=== PATIENT | male | born 1940 | race Caucasian/White ===

== ENCOUNTER 2020-02-09 14:00 | Emergency (ER) | payer OTHER ==
--- NOTE | 2020-02-09 14:47 | ED ---
Complex/Multi-Sys Presentation - HPI Summary HPI Summary: Patient is an 79 year-old male who has history of type II diabetes presenting to [facility] with a chief complaint of increased fatigue with excessive sleeping since yesterday. Patient reports that he called his PCP Dr. Colunga because he has been feeling sleepy for 2-3 weeks, but he was referred here. He states he is just feeling tired, but his family is concerned that his glucose levels are out of normal limits after traveling from [facility] yesterday since being there since November for business travel, although he lives in [place]. Family reports that the patient does not have any known COVID-19 exposure. He denies any fevers, chills, cough, shortness of breath, erythema of eyes, sore throat, rhinorrhea, chest pain/tightness/heaviness/pressure, abdominal pain, nika red blood in stool, melena, diarrhea, nausea/vomiting, myalgia, or rash. He endorses decreased appetite. He notes occasional dizziness. Patient states he always has sinus congestion. No recent falls. Patient sleeps on one pillow at night; he denies recent weight gain or edema in the lower extremities. He reports urinary urgency with history of BPH, but he denies any dysuria or hematuria. He is not experiencing any pain. Patients glucose level in the room upon arrival is 145, per nurse Matts note. Past medical history additionally includes hypertension, hypercholesterolemia, CAD, 2 cardiac stents, bilateral cataracts. Former smoker , no EtOH, no substance use. Medications reviewed. Allergies noted. - History Of Current Complaint Chief Complaint: EDDiabeticProb Time Seen by Provider: 02/09/20 14:20 Hx Obtained From: Patient Onset/Duration: Lasting Weeks, Still Present Timing: Weeks Severity Currently: Mild Severity Initially: Mild Aggravating Factor(s): nothing Alleviating Factor(s): nothing Associated Signs And Symptoms: Positive: Dizziness - occasional, Other - urinary urgency, decreased appetite; Negative: recent weight gain, chills, erythema of eyes, sore throat, rhinorrhea, nika red blood in stool, diarrhea, myalgia, rash. Negative: SOB, Cough, Chest Pain, Edema, Nausea, Vomiting, Diarrhea, Abdominal Pain, Dysuria, Melena, Fever Related History: Other - travel from [facility] yesterday - Allergies/Home Medications Allergies/Adverse Reactions: Allergies Allergy/AdvReac Type Severity Reaction Status Date / Time No Known Allergies Allergy Verified 02/09/20 14:07 Home Medications: Home Medications Aspirin EC TAB* [Ecotrin EC Low Dose 81 MG*] 81 mg PO DAILY 09/04/16 [History Confirmed 02/09/20] Enalapril(NF) [Enalapril (NF)] 10 mg PO DAILY 09/04/16 [History Confirmed ] Finasteride [Proscar] 5 mg PO DAILY 09/04/16 [History Confirmed 02/09/20] Simvastatin TAB(NF) [Zocor(NF)] 20 mg PO BEDTIME 09/04/16 [History Confirmed ] glipiZIDE TAB.XL* [Glucotrol XL*] 5 mg PO BID 09/04/16 [History Confirmed ] Fluticasone NASAL SPRAY 50MCG* [Flonase NASAL SPRAY 50MCG*] 1 - 2 spray BOTH NARES DAILY 02/09/20 [History Confirmed 02/09/20] Nystatin CREAM* 1 applic TOPICAL .2-3X/DAY 02/09/20 [History Confirmed 02/09/20] Pioglitazone TAB* [Actos TAB*] 15 mg PO DAILY 02/09/20 [History Confirmed ] Terazosin CAP* [Hytrin CAP*] 10 mg PO DAILY 02/09/20 [History Confirmed 02/09/20 ] PMH/Surg Hx/FS Hx/Imm Hx Endocrine/Hematology History: Reports: Hx Diabetes - TYPE 2 Cardiovascular History: Reports: Hx Coronary Artery Disease - 2 STENTS X2006, Hx Hypertension - ON MEDS PT. STATES CONTROLLED Respiratory History: Reports: Hx Sleep Apnea - STATES BEING DX DOESN'T USE CPAP , Other Respiratory Problems/Disorders - HEAVY SNORER History: Reports: Hx Benign Prostatic Hyperplasia Sensory History: Reports: Hx Cataracts - BILAT, Hx Contacts or Glasses - READING , Hx Hearing Aid - LEFT EAR HEARING AID NO HEARING IN RIGHT EAR Opthamlomology History: Reports: Hx Cataracts - BILAT, Hx Contacts or Glasses - READING - Surgical History Surgical History: Yes Surgery Procedure, Year, and Place: 07/19 BILAT CATARACT REMOVAL. RIGHT AND LEFT HERNIA REPAIR Hx Anesthesia Reactions: No Infectious Disease History: No Infectious Disease History: Denies: Traveled Outside the [place] in Last 30 Days - Family History Known Family History: Positive: Hypertension - Social History Alcohol Use: None Hx Substance Use: No Substance Use Type: Reports: None Hx Tobacco Use: Yes Smoking Status (MU): Former Smoker Review of Systems Positive: Fatigue. Negative: Fever, Chills, Other - recent weight gain Negative: Erythema Negative: Sore Throat, Nasal Discharge Negative: Chest Pain - or tightness/heaviness/pressure Positive: Other - decreased appetite; Negative: blood in stool, melena. Negative: Abdominal Pain, Vomiting, Diarrhea, Nausea Positive: urgency - secondary to BPH. Negative: dysuria, hematuria Negative: Myalgia, Edema Negative: Rash Neurological/Mental Status: Other - occasional dizziness All Other Systems Reviewed And Are Negative: Yes Physical Exam - Summary Physical Exam Summary: Constitutional: Well-developed, Well-nourished, Alert. (-) Distressed Skin: Warm, Dry HENT: Normocephalic; Atraumatic Eyes: Conjunctiva normal Neck: Musculoskeletal ROM normal neck. (-) JVD, (-) Stridor, (-) Tracheal deviation Cardio: Rhythm regular, rate normal, Heart sounds normal; Intact distal pulses; The pedal pulses are 2+ and symmetric. Radial pulses are 2+ and symmetric. (-) Murmur Pulmonary/Chest wall: Effort normal. Very fine bibasilar crackles, (-) Respiratory distress, (-) Wheezes, (-) Rales Abd: Soft, (-) tenderness, (-) Distension, (-) Guarding, (-) Rebound Musculoskeletal: (-) Edema Lymph: (-) Cervical adenopathy Neuro: Alert, Oriented x3 Psych: Mood and affect Normal Triage Information Reviewed: Yes Vital Signs On Initial Exam: Initial Vitals Temp Pulse Resp BP Pulse Ox 97.9 F 93 20 113/80 92 02/09/20 14:02 02/09/20 14:02 02/09/20 14:02 02/09/20 14:02 02/09/20 14:02 Vital Signs Reviewed: Yes Procedures - Sedation Patient Received Moderate/Deep Sedation with Procedure: No Diagnostics - Vital Signs Vital Signs Temp Pulse Resp BP Pulse Ox 02/09/20 14:02 97.9 F 93 20 113/80 92 - Laboratory Lab Results: Lab Results 02/09/20 Range/Units 14:14 POC Glucose (mg/dL) 145 H (70-100) mg/dL Result Diagrams: 02/09/20 15:45 02/09/20 15:45 Lab Statement: Any lab studies that have been ordered have been reviewed, and results considered in the medical decision making process. - Radiology CXR Radiology Interpretation Completed By: Radiologist Summary of Radiographic Findings: Impression: Limited exam due to obesity without gross evidence for pneumonia. No evidence for acute intrathoracic disease. Dr. Mistry has reviewed this report. - EKG 1600 Cardiac Rate: NL - 87 BPM EKG Rhythm: Sinus Rhythm Summary of EKG Findings: An EKG at 1600 reveals sinus rhythm at 87 BPM. RBBB. No STEMI. Dr. Mistry has reviewed and interpreted this EKG. Re-Evaluation - Re-Evaluation First Eval Re-Evaluation Time: 17:40 Comment: Explained results. Agrees to dispo plan. Complex Multi-Symp Course/Dx Course Of Treatment: 79 year-old male with history of diabetes/BPH/CAD presenting with fatigue over the last few weeks and recent travel from [facility] yesterday after being there since November. No known COVID-19 exposure, per family. Patient denies fevers, shortness of breath, cough, rhinorrhea, sore throat, chest discomfort, GI/ symptomsm myalgias. Endorses decreased appetite , occasional dizziness. States congestion at baseline. Urinary urgency secondary to BPH. Sleeps on one pillow, no recent weight gain. Former smoker. Family concerned for abnormal glucose levels but sugar in the ED is 145 upon arrival. Very fine bibasilar crackles present on physical exam. Patient placed on droplet/contact precautions as PUI. Blood work with abnormalities of platelets 136, BUN 29, creatinine 1.19, glucose 123, CRP 26.67. Negative troponin. Cultures sent. Urinalysis shows trace ketones but otherwise within normal limits. Influenza A and B are negative. COVID-19 swab sent, pending results. EKG at 1600 reveals sinus rhythm at 87 BPM, RBBB, no STEMI. CXR is limited due to obesity, although there is no gross evidence for pneumonia or acute intrathoracic disease. Viral process is possible. He reports no shortness of breath, and his O2 saturations are normal. Supportive treatment with Tylenol and hydration. All results discussed. Patient is safe for discharge to home with PCP follow up within two days. Patient understands and agrees with plan. - Diagnoses Provider Diagnoses: Fatigue Discharge ED - Sign-Out/Discharge Documenting (check all that apply): Patient Departure - Patient will be discharged home. - Discharge Plan Condition: Stable Disposition: HOME Patient Education Materials: Fatigue (ED) Referrals: Norris Colunga MD [Primary Care Provider] - 2 Days Additional Instructions: Please isolate yourself at home until the Health Department contacts you and tells you otherwise depending on your test results. Follow up with your primary care provider in 48 hours concerning todays visit. Return to the emergency department for any new or worsening symptoms. - Attestation Statements Document Initiated by Scribe: Yes Documenting Scribe: Crystal Soto Provider For Whom Scribe is Documenting (Include Credential): Rasheed Mistry MD Scribe Attestation: Crystal Long, scribed for Rasheed Mistry MD on 02/09/20 at 1745. Status of Scribe Document: Ready
[2020-02-09 16:09] LABS: ABS Monocytes 0.7 10^3/ul (0-0.8); Eosinophil % 0.2 %; Hematocrit 41 % (42-52); Lymphocyte % 17.7 %; Mean Corpuscular HGB Conc 34 g/dL (31-36); Mean Corpuscular Hemoglobin 29 pg (27-31); Mean Corpuscular Volume 85 fL (80-94); Mean Platelet Volume 9.7 fL (7.4-10.4); Platelet Count 136 10^3/uL (150-450); Red Blood Count 4.83 10^6 /uL (4.18-5.48); Red Cell Distribution Width 15 % (10-15); White Blood Count 5.6 10^3/uL (3.5-10.8)
[2020-02-09 16:20] LABS: Activated Partial Thrombo Time 28.1 seconds (26.0-38.0); INR 1.04 (0.82-1.09)
[2020-02-09 16:24] LABS: Influenza A Molecular Negative (Negative); Influenza B Molecular Negative (Negative)
[2020-02-09 16:32] LABS: Albumin 3.8 g/dL (3.2-5.2); Albumin/Globulin Ratio 1.2 (1-3); BUN/Creatinine Ratio 24.4 (8-20); C Reactive Protein 26.67 mg/L (<8.01); Calcium 8.8 mg/dL (8.6-10.3); EGFR Non-African American 58.7 (>60); Globulin 3.2 g/dL (2-4); Total Bilirubin 0.6 mg/dL (0.2-1.0)
[2020-02-09 16:35] LABS: Urine Appearance Cloudy; Urine Bilirubin Negative (Negative); Urine Blood Negative (Negative); Urine Color Yellow; Urine Glucose Negative (Negative); Urine Ketones Trace (Negative); Urine Nitrite Negative (Negative); Urine Protein Negative (Negative); Urine Specific Gravity 1.015 (1.010-1.030); Urine Urobilinogen Negative (Negative)
[2020-02-09 16:43] LABS: Troponin I 0.01 ng/mL (<0.03)
[2020-02-09 17:53] VITALS: BP 122/73
== END 2020-02-09 17:52 | disposition home or self-care (01) ==
LOC: ED 14:00
DX: R53.83 Other fatigue (principal); B97.29 Other coronavirus as the cause of diseases classified elsewhere; E11.9 Type 2 diabetes mellitus without complications; I25.10 Atherosclerotic heart disease of native coronary artery without angina pectoris; Z95.1 Presence of aortocoronary bypass graft; I10 Essential (primary) hypertension; E78.00 Pure hypercholesterolemia, unspecified; N40.0 Benign prostatic hyperplasia without lower urinary tract symptoms; Z87.891 Personal history of nicotine dependence; Z79.82 Long term (current) use of aspirin; R94.31 Abnormal electrocardiogram [ECG] [EKG]
CPT/HCPCS: 36415; 71045; 80053; 81003; 83605; 83880; 84484; 85025; 85610; 85730; 86140; 87040; 87635; 93005; 99283

== ENCOUNTER 2024-06-19 16:57 | Observation (INO) ==
[2024-06-19 19:13] LABS: ABS Eosinophils 0.2 10^3/uL (0.0-0.5); ABS Lymphocytes 1.5 10^3/uL (1.0-4.8); Eosinophil % 2.2 %; Hematocrit 37.9 % (38-53); Hemoglobin 12.3 g/dL (13.2-16.3); Lymphocyte % 15.5 %; Mean Corpuscular Hemoglobin 27.7 pg (27-33); Mean Corpuscular Hgb Conc 32.4 g/dL (31-36); Mean Corpuscular Volume 85.5 fL (80-97); Mean Platelet Volume 8.7 fL (7.5-11.2); Platelet Count 255 10^3/uL (150-450); Red Blood Count 4.43 10^6/uL (4.06-5.63); Red Cell Distribution Width 15.5 % (12-17); White Blood Count 9.8 10^3/uL (3.6-10.2)
[2024-06-19 19:48] LABS: Albumin 4.1 g/dL (3.2-5.2); Albumin/Globulin Ratio 1.3 (1-3); C Reactive Protein 33.62 mg/L (<8.01); Calcium 9.3 mg/dL (8.6-10.3); Creatinine, Serum 1.07 mg/dL (0.67-1.17); Globulin 3.2 g/dL (2-4); Potassium 4.6 mmol/L (3.5-5.0); Total Bilirubin 0.5 mg/dL (0.2-1.0); Total Protein 7.3 g/dL (6.4-8.9)
[2024-06-19 20:35] LABS: Erythrocyte Sed Rate 63 mm/Hr (0-19)
[2024-06-19] MEDS: Piperacillin/Tazobac 3.375 BAG 3.375 GM/100 ML BAG IV ONE (21:49)
[2024-06-19] MEDS: Vancomycin 1,000 MG in NS 0.9% 250 ml 250 ML IVPB ONE (23:08)
[2024-06-20] MEDS: cefTRIAXone 1 gm/50 mL D5W 1 GM/50 ML BAG IV SCH (02:55)
[2024-06-20] MEDS ORDERED: Vancomycin per Pharmacy 1 EA NOTE FOLLOW UP SCH (03:00)
[2024-06-20] MEDS ORDERED: Dextrose 50% Syringe 50 ml 25 GM/50 ML SYRINGE IV PUSH PRN (05:42)
[2024-06-20] MEDS ORDERED: Vancomycin 1,000 MG in NS 0.9% 250 ml 250 ML IVPB ONE (06:00)
[2024-06-20] MEDS: Enoxaparin 60 MG/0.6 ML SYR SUBCUT SCH (09:12)
[2024-06-20] MEDS: Aspirin EC 81 mg TAB.EC (enteric coated) PO SCH (09:12)
[2024-06-20] MEDS: Vancomycin 750 MG in NS 0.9% 250 ML IVPB SCH (09:23)
[2024-06-20] MEDS: Furosemide 20 mg/2 ml IV VIAL IV SLOW PU ONE (13:50)
[2024-06-20] MEDS ORDERED: Sulfur Hexaflouride MICROSPHR 25 MG VIAL ONE ×2 (15:27)
[2024-06-20] MEDS: Sulfur Hexaflouride MICROSPHR 25 MG VIAL IV ONE (15:41)
[2024-06-21 06:11] LABS: ABS Eosinophils 0.2 10^3/uL (0.0-0.5); ABS Lymphocytes 1.3 10^3/uL (1.0-4.8); ABS Monocytes 1.2 10^3/uL (0.0-1.1); ABS Neutrophils 6.9 10^3/uL (1.5-7.6); Eosinophil % 2.6 %; Hematocrit 33.1 % (38-53); Hemoglobin 11.3 g/dL (13.2-16.3); Lymphocyte % 13.7 %; Mean Corpuscular Hemoglobin 28.7 pg (27-33); Mean Corpuscular Hgb Conc 34.2 g/dL (31-36); Mean Platelet Volume 8.5 fL (7.5-11.2); Platelet Count 223 10^3/uL (150-450); Red Blood Count 3.95 10^6/uL (4.06-5.63); Red Cell Distribution Width 15.5 % (12-17); White Blood Count 9.7 10^3/uL (3.6-10.2)
[2024-06-21 06:41] LABS: Albumin 3.2 g/dL (3.2-5.2); Albumin/Globulin Ratio 1.3 (1-3); C Reactive Protein 130.91 mg/L (<8.01); Calcium 8.5 mg/dL (8.6-10.3); Creatinine, Serum 1.05 mg/dL (0.67-1.17); Globulin 2.4 g/dL (2-4); Magnesium 2.1 mg/dL (1.9-2.7); Total Bilirubin 0.5 mg/dL (0.2-1.0); Total Protein 5.6 g/dL (6.4-8.9); eGFR CKD-EPI 69.6 (>60)
[2024-06-21] MEDS ORDERED: Vancomycin Trough Check NOTE FOLLOW UP ONE (08:30)
[2024-06-21 13:59] VITALS: BP 107/51
== END 2024-06-21 14:35 | disposition home or self-care (01) ==
LOC: EDHOLD 16:57 → ED 16:57 → SUATTDRO 06-20 01:00 → MEDTELE 06-20 17:32
PROVIDERS: ADMIT Internal Medicine; ATTEND Student in an Organized Health Care Education/Training Program

== ENCOUNTER 2024-07-07 06:37 | Observation (INO) ==
[2024-07-07 07:46] LABS: ABS Basophils 0.1 10^3/uL (0.0-0.1); ABS Eosinophils 0.1 10^3/uL (0.0-0.5); ABS Lymphocytes 0.8 10^3/uL (1.0-4.8); ABS Monocytes 0.6 10^3/uL (0.0-1.1); ABS Neutrophils 8.1 10^3/uL (1.5-7.6); Eosinophil % 1.3 %; Hematocrit 24.9 % (38-53); Hemoglobin 8.4 g/dL (13.2-16.3); Lymphocyte % 8.5 %; Mean Corpuscular Hemoglobin 28.8 pg (27-33); Mean Corpuscular Hgb Conc 33.9 g/dL (31-36); Mean Corpuscular Volume 85.1 fL (80-97); Mean Platelet Volume 9.4 fL (7.5-11.2); Platelet Count 252 10^3/uL (150-450); Red Blood Count 2.92 10^6/uL (4.06-5.63); Red Cell Distribution Width 15.6 % (12-17); White Blood Count 9.7 10^3/uL (3.6-10.2)
[2024-07-07 08:34] LABS: Blood Urea Nitrogen > 120 mg/dL (6-24)
[2024-07-07 08:35] LABS: ALT 11 U/L (7-52); Albumin 3.9 g/dL (3.2-5.2); Albumin/Globulin Ratio 1.2 (1-3); Alkaline Phosphatase 51 U/L (35-149); Anion Gap 10 mmol/L (2-16); CO2 Carbon Dioxide 26 mmol/L (22-32); Calcium 8.5 mg/dL (8.6-10.3); Chloride 98 mmol/L (101-111); Creatinine, Serum 2.04 mg/dL (0.67-1.17); Globulin 3.3 g/dL (2-4); Glucose 149 mg/dL (70-100); Sodium 134 mmol/L (135-145); Total Bilirubin 0.3 mg/dL (0.2-1.0); Total Protein 7.2 g/dL (6.4-8.9); eGFR CKD-EPI 31.4 (>60)
[2024-07-07 09:24] LABS: Urine Appearance Clear; Urine Bilirubin Negative (Negative); Urine Blood Negative (Negative); Urine Color Light-Yellow; Urine Glucose Negative (Negative); Urine Ketones Negative (Negative); Urine Nitrite Negative (Negative); Urine Protein Negative (Negative); Urine Specific Gravity 1.014 (1.002-1.030); Urine Urobilinogen Negative (Negative)
[2024-07-07] MEDS: Pantoprazole VIAL 40 MG VIAL IV ONE (10:26)
[2024-07-07 10:35] LABS: Potassium Redraw 4.9 mmol/L (3.5-5.0)
[2024-07-07] MEDS ORDERED: Pantoprazole VIAL 40 MG VIAL IV SCH (12:00)
[2024-07-07] MEDS ORDERED: Dextrose 50% Syringe 50 ml 25 GM/50 ML SYRINGE IV PUSH PRN (12:38)
[2024-07-07 14:30] LABS: Hematocrit 22.3 % (38-53); Hemoglobin 7.6 g/dL (13.2-16.3)
[2024-07-07] MEDS: Pantoprazole VIAL 40 MG VIAL IV SCH (22:13)
[2024-07-08 00:17] LABS: Hematocrit 29.4 % (38-53); Hemoglobin 9.5 g/dL (13.2-16.3)
[2024-07-08 00:36] LABS: Calcium 8.8 mg/dL (8.6-10.3); Creatinine, Serum 1.42 mg/dL (0.67-1.17); Potassium 4.8 mmol/L (3.5-5.0); eGFR CKD-EPI 48.4 (>60)
[2024-07-08 06:31] LABS: Hematocrit 25.8 % (38-53); Hemoglobin 8.8 g/dL (13.2-16.3); Mean Corpuscular Hemoglobin 28.9 pg (27-33); Mean Corpuscular Hgb Conc 34.1 g/dL (31-36); Mean Corpuscular Volume 84.7 fL (80-97); Mean Platelet Volume 8.6 fL (7.5-11.2); Platelet Count 232 10^3/uL (150-450); Red Blood Count 3.05 10^6/uL (4.06-5.63); Red Cell Distribution Width 15.9 % (12-17); White Blood Count 8.9 10^3/uL (3.6-10.2)
[2024-07-08] MEDS: Fluticasone NASAL SPRAY 50MCG 16 gm SPRAY BTL BOTH NARES SCH (08:34)
[2024-07-08] MEDS ORDERED: Pantoprazole VIAL 40 MG VIAL IV SCH (09:00)
[2024-07-08] MEDS: Acetaminophen IV 1 GM/100ML 1,000 MG/100 ML BAG IV PRN (13:04)
[2024-07-08] MEDS ORDERED: Midazolam 10 mg/10 ml VIAL 1 mg/ml 10 ml VIAL (10 mg) ONE (14:14)
[2024-07-08] MEDS ORDERED: fentaNYL 100 mcg/2 ml 50 MCG/ML VIAL ONE (14:14)
[2024-07-08] MEDS: Psyllium PAK PO SCH (15:55)
[2024-07-09 06:14] LABS: Albumin 3.2 g/dL (3.2-5.2); Albumin/Globulin Ratio 1.4 (1-3); Calcium 8.5 mg/dL (8.6-10.3); Creatinine, Serum 1.2 mg/dL (0.67-1.17); Globulin 2.3 g/dL (2-4); Magnesium 2.5 mg/dL (1.9-2.7); Phosphorus 4.1 mg/dL (2.5-5.0); Potassium 4.7 mmol/L (3.5-5.0); Total Bilirubin 0.4 mg/dL (0.2-1.0); Total Protein 5.5 g/dL (6.4-8.9); eGFR CKD-EPI 59.3 (>60)
[2024-07-10 06:31] LABS: ABS Basophils 0.1 10^3/uL (0.0-0.1); ABS Eosinophils 0.4 10^3/uL (0.0-0.5); ABS Lymphocytes 1.4 10^3/uL (1.0-4.8); ABS Monocytes 1.1 10^3/uL (0.0-1.1); ABS Neutrophils 5.7 10^3/uL (1.5-7.6); ABS Nucleated RBC 0.01 10^3/ul; Eosinophil % 4.2 %; Hematocrit 25.7 % (38-53); Hemoglobin 8.4 g/dL (13.2-16.3); Lymphocyte % 16.2 %; Mean Corpuscular Hgb Conc 32.8 g/dL (31-36); Mean Corpuscular Volume 85.2 fL (80-97); Mean Platelet Volume 8.6 fL (7.5-11.2); Nucleated Red Blood Cells % 0.1 %/100WBC (0.0-0.8); Platelet Count 252 10^3/uL (150-450); Red Blood Count 3.02 10^6/uL (4.06-5.63); Red Cell Distribution Width 15.4 % (12-17); White Blood Count 8.6 10^3/uL (3.6-10.2)
[2024-07-10 06:51] LABS: Calcium 8.3 mg/dL (8.6-10.3); Creatinine, Serum 1.11 mg/dL (0.67-1.17); Magnesium 1.9 mg/dL (1.9-2.7); Phosphorus 3.4 mg/dL (2.5-5.0); Potassium 4.6 mmol/L (3.5-5.0); eGFR CKD-EPI 65.1 (>60)
[2024-07-10] MEDS: Magnesium Sulfate IV 1GM/100ML 1 GM/100 ML BAG IV ONE (09:34)
[2024-07-10] MEDS ORDERED: Dextrose 50% Syringe 50 ml 25 GM/50 ML SYRINGE IV PUSH PRN (11:57)
[2024-07-11 05:35] LABS: ABS Basophils 0.1 10^3/uL (0.0-0.1); ABS Eosinophils 0.5 10^3/uL (0.0-0.5); ABS Lymphocytes 1.8 10^3/uL (1.0-4.8); ABS Monocytes 0.9 10^3/uL (0.0-1.1); ABS Neutrophils 5.1 10^3/uL (1.5-7.6); Eosinophil % 5.7 %; Hematocrit 25.8 % (38-53); Hemoglobin 8.6 g/dL (13.2-16.3); Lymphocyte % 21.2 %; Mean Corpuscular Hgb Conc 33.2 g/dL (31-36); Mean Corpuscular Volume 84.5 fL (80-97); Mean Platelet Volume 8.3 fL (7.5-11.2); Platelet Count 259 10^3/uL (150-450); Red Blood Count 3.05 10^6/uL (4.06-5.63); Red Cell Distribution Width 15.5 % (12-17); White Blood Count 8.3 10^3/uL (3.6-10.2)
[2024-07-11 06:05] LABS: Calcium 8.2 mg/dL (8.6-10.3); Creatinine, Serum 1.13 mg/dL (0.67-1.17); Magnesium 1.9 mg/dL (1.9-2.7); Phosphorus 3.7 mg/dL (2.5-5.0); Potassium 4.4 mmol/L (3.5-5.0); eGFR CKD-EPI 63.7 (>60)
[2024-07-11 10:02] VITALS: BP 121/58
[2024-07-11] MEDS: Magnesium Sulfate IV 1GM/100ML 1 GM/100 ML BAG IV ONE (10:08)
[2024-07-11 11:02] LABS: Rapid COVID-19 Molecular Undetected (Undetected)
== END 2024-07-11 14:45 ==
LOC: ED 06:37 → EDHOLD 06:37 → SUATTDRO 10:37 → MED 12:13
PROVIDERS: ADMIT Internal Medicine; ATTEND Internal Medicine